=== PATIENT | male | born 1935 | race Caucasian/White ===

== ENCOUNTER → 2017-09-01 | Outpatient (CLI) | payer OTHER ==
[2016-01-06 10:20] VITALS: BP 105/55
[~2017-09-01] MED LIST: AMLO10TA2 PO; ASPI-612 PO; ATOR10TA60 PO; CONTRAST GIVEN MC PRN; DICL100G18 TP; FINA5TAB4 PO; IOHEXOL 300 MG/ML 75 ML VIAL IV ONE; ISOS30TA19 PO; LOSA50TA6 PO; MELO15TA23 PO; OMEG1CAP6 PO; SERT25TA PO; SOTA80TA48 PO
--- NOTE | 2017-09-01 12:51 | RAD ---
Examination: CT angiography chest History: History of aortic insufficiency Comparison: None available Technique: Axial CT and radiographic images were performed with IV contrast. Coronal and sagittal 3-D MIP reformats are performed Volumetric 3-D reformats of the thoracic aorta was performed PQRS Compliance Statement: One or more of the following individualized dose reduction techniques were utilized for this examination: 1. Automated exposure control 2. Adjustment of the mA and/or kV according to patient size 3. Use of iterative reconstruction technique Findings: The visualized thyroid gland grossly appears unremarkable. The central airways are patent. Diffuse coronary artery calcifications identified. Moderate aortic atherosclerosis. No evidence of aortic dissection identified in the thorax. The ascending aorta at the aortic root measures 4.2 cm in transverse dimension. No evidence of filling defect identified in the main pulmonary arterial trunk and the visualized main pulmonary arteries. Minimal bibasal lung atelectasis. The visualized liver, spleen grossly appears unremarkable. Partially visualized duodenal diverticulum. Moderate degenerative disease identified in the thoracic spine. Impression: 1. Mild ascending aortic aneurysmal changes with ascending aorta at the aortic root measuring 4.4 cm in transverse dimension. 2. Coronary artery calcifications.
--- NOTE | 2017-09-01 16:25 | CARD ---
APPROVED REPORT EXAM: Two-dimensional and M-mode echocardiogram with Doppler and color Doppler. INDICATION Cardiomyopathy 2D DIMENSIONS Left Atrium(2D)3.7 (1.6-4.0cm)IVSd1.3 (0.7-1.1cm) Aortic Root(2D)3.6 (2.0-3.7cm)LVDd4.6 (3.9-5.9cm) LVOT Diameter2.0 (1.8-2.4cm)PWd1.2 (0.7-1.1cm) LVDs3.2 (2.5-4.0cm)FS (%) 30.4 % SV57.1 mlLVEF(%)57.9 (>50%) Aortic Valve AoV Peak Pablo.151.7cm/sAoV VTI34.5cm AO Peak GR.9.2mmHgLVOT Peak Pablo.132.3cm/s AO Mean GR.4mmHgAVA (VMAX)2.69cm2 TANNA (VTI)2.49jq2WS P 1/2 Cwtw600pb Mitral Valve MV E Aezwgwop245.8cm/sMV DECEL EALZ799mp MV A Vsfuqiuy964.0cm/sE/A Ratio0.8 Tricuspid Valve TR P. Lsrheudo208es/sTR Peak Gr.16mmHg XSAZ40tvTm LEFT VENTRICLE The left ventricle is normal size. There is mild concentric left ventricular hypertrophy. Left ventri odin systolic function is normal. The Ejection Fraction is 50-55%. There is normal LV segmental wall m otion. Transmitral Doppler flow pattern is Grade I-abnormal relaxation pattern. RIGHT VENTRICLE The right ventricle is normal size. The right ventricular systolic function is normal. ATRIA The left atrium size is normal. The right atrium size is normal. The interatrial septum is intact wit h no evidence for an atrial septal defect or patent foramen ovale as noted on 2-D or Doppler imaging. AORTIC VALVE The aortic valve is calcified but opens well. Grossly appears trileaflet. Doppler and Color Flow reve aled mild aortic regurgitation. There is no significant aortic valvular stenosis. MITRAL VALVE The mitral valve is mildly thickened. There is no evidence of mitral valve prolapse. There is no mitr al valve stenosis. Doppler and Color Flow revealed no mitral valve regurgitation noted. TRICUSPID VALVE The tricuspid valve leaflets are thickened and calcified, but open well. Doppler and Color Flow revea led mild tricuspid regurgitation. There is no pulmonary hypertension. The PA pressure was estimated a t 19 mmHg. There is no tricuspid valve stenosis. PULMONIC VALVE Doppler and Color Flow revealed mild pulmonic valvular regurgitation. There is no pulmonic valvular s tenosis. GREAT VESSELS The aortic root is normal in size. Mild calcification noted in aortic root. The IVC is normal in size and collapses >50% with inspiration. PERICARDIAL EFFUSION There is no pleural effusion. There is no evidence of significant pericardial effusion. Critical Notification Critical Value: No <Conclusion> Left ventricle systolic function is normal. The Ejection Fraction is 50-55%. There is mild concentric left ventricular hypertrophy. There is normal LV segmental wall motion.
== END | disposition home or self-care (01) ==
LOC: CT 10:56
PROVIDERS: ATTEND Internal Medicine Cardiovascular Disease
DX: I25.10 Atherosclerotic heart disease of native coronary artery without angina pectoris (principal); I35.1 Nonrheumatic aortic (valve) insufficiency; K57.10 Diverticulosis of small intestine without perforation or abscess without bleeding; I71.2 Thoracic aortic aneurysm, without rupture; I42.9 Cardiomyopathy, unspecified
CPT/HCPCS: 71275; 93306; Q9967

== ENCOUNTER → 2018-06-20 | Outpatient (CLI) | payer OTHER ==
[2016-01-06 10:20] VITALS: BP 105/55
[~2018-06-20] MED LIST changes: -CONTRAST GIVEN MC PRN; -IOHEXOL 300 MG/ML 75 ML VIAL IV ONE
--- NOTE | 2018-06-21 08:33 | RAD ---
Bilateral lower extremity superficial venous duplex study 06/20/2018 CLINICAL HISTORY: Lower extremity venous insufficiency. TECHNIQUE: Using a combination of real-time ultrasound imaging and color-flow and pulse Doppler imaging techniques, duplex evaluation of the greater and lesser saphenous veins of both lower extremities was performed. Multiple images were obtained. FINDINGS: The right greater saphenous vein at its junction with the right superficial femoral vein measures 5 mm in diameter. No venous reflux is seen. The left greater saphenous vein measures 6.6 mm at its junction. No venous reflux is seen. Both greater saphenous veins are patent. Both lesser saphenous veins are patent. No venous reflux is seen involving either lesser saphenous vein. IMPRESSION: No venous reflux is seen. Electronically signed by: Baldemar Medeiros MD (06/21/2018 8:29 AM) [facility]
== END | disposition home or self-care (01) ==
LOC: US 12:28
PROVIDERS: ATTEND Internal Medicine Cardiovascular Disease
DX: I48.0 Paroxysmal atrial fibrillation (principal); I87.2 Venous insufficiency (chronic) (peripheral); I10 Essential (primary) hypertension; E78.5 Hyperlipidemia, unspecified; M17.9 Osteoarthritis of knee, unspecified; I25.10 Atherosclerotic heart disease of native coronary artery without angina pectoris; K21.9 Gastro-esophageal reflux disease without esophagitis
CPT/HCPCS: 93970

== ENCOUNTER 2018-08-09 16:40 | Emergency (ER) | payer OTHER ==
[~2018-08-09] VITALS: Ht 172.7 cm; Wt 80.7 kg
[~2018-08-09 16:40] MED LIST changes: -AMLO10TA2 PO; +AMLO10TA6 PO; -LOSA50TA6 PO; +LOSA50TA7 PO
[2018-08-09 16:59] VITALS: BP 136/62
[2018-08-09] MEDS ORDERED: NEOMY/BACITR/POLYMYXIN OINT PACKET. TP ONE (17:15)
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
== END 2018-08-09 17:33 | disposition home or self-care (01) ==
LOC: ER 16:40
DX: S50.812A Abrasion of left forearm, initial encounter (principal); S50.811A Abrasion of right forearm, initial encounter; I48.91 Unspecified atrial fibrillation; I10 Essential (primary) hypertension; E78.5 Hyperlipidemia, unspecified; Z86.73 Personal history of transient ischemic attack (TIA), and cerebral infarction without residual deficits; V43.52XA Car driver injured in collision with other type car in traffic accident, initial encounter; Y93.I9 Activity, other involving external motion; Y92.488 Other paved roadways as the place of occurrence of the external cause; Y99.8 Other external cause status
CPT/HCPCS: 99283

== ENCOUNTER → 2020-05-02 | Outpatient (CLI) | payer MEDICARE ==
[~2020-05-02] MED LIST changes: -AMLO10TA6 PO; +AMLO10TA8 PO; -DICL100G18 TP; +DICL100G54 TP; +LIDOCAINE 2% PF 5 ML VIAL. ONE; +LOSA-73 PO; -LOSA50TA7 PO; +PROPOFOL 10 MG/ML (20ML) VIAL. IV ONE; +ePHEDrine PF IN SALINE 50 MG/10 ML SYRINGE. IV ONE
--- NOTE | 2020-05-02 15:54 | RAD ---
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 36/7 cm/sVert. 36/6 cm/s ICA/CCA 1.25ICA/CCA 0.94 Findings Grayscale images of the bilateral common carotid, internal and external carotid vessels demonstrate m ild luminal irregularities. Spectral waveforms and color Doppler are grossly within normal limits. No focal high-grade stenosis is identified bilaterally. Overall 0 to less than 50% stenosis based on velocity criteria. Critical Notification Critical Value: No <Conclusion> 1. No significant carotid occlusive disease bilaterally Signed by : Dillon Bassett, Electronically Approved : 05/02/2020 15:53:50
--- NOTE | 2020-05-02 16:36 | CARD ---
MR#: [id number] Date of Study: 05/02/2020 Ordering Physician: DILLON BASSETT, Referring Physician: DILLON BASSETT, Tech: Cyndi Castellanos [facility] APPROVED REPORT EXAM: Two-dimensional and M-mode echocardiogram with Doppler and color Doppler. Other Information Quality : Fair INDICATION Ascending Aortic Anuerysm 2D DIMENSIONS RVDd2.6 (2.9-3.5cm)Left Atrium(2D)4.3 (1.6-4.0cm) IVSd1.1 (0.7-1.1cm)Aortic Root(2D)4.1 (2.0-3.7cm) LVDd5.3 (3.9-5.9cm)LVOT Diameter2.2 (1.8-2.4cm) PWd1.0 (0.7-1.1cm)LVDs3.1 (2.5-4.0cm) FS (%) 30.0 %SV100.1 ml LVEF(%)60.0 (>50%) Aortic Valve AoV Peak Pablo.137.7cm/sAoV VTI31.6cm AO Peak GR.7.6mmHgLVOT Peak Pablo.126.1cm/s LVOT VTI 27.03cmAO Mean GR.4mmHg TANNA (VMAX)3.13ug9ZIU (VTI)3.17cm2 AI P 1/2 Bllw293cv Mitral Valve MV E Uutitbwp670.5cm/sMV DECEL ANMR147hz MV A Wuxdzkqe957.2cm/sMV LKU44jb E/A Ratio0.8MVA (PHT)3.10cm2 TDI E/Lateral E'16.4E/Medial E'20.7 Tricuspid Valve TR P. Gncabgcb716sh/sRAP NQYBHDZK1okXu TR Peak Gr.70lkAzRHIY44jrDd Pulmonary Vein S1 Ovybbtgh75.7cm/sD2 Uivcmyiz16.8cm/s LEFT VENTRICLE The left ventricle is normal size. There is normal left ventricular wall thickness. The left ventricu lar systolic function is normal and the ejection fraction is within normal range. The Ejection Fracti on is 55-60%. There is normal LV segmental wall motion. Transmitral Doppler flow pattern is Grade I-a bnormal relaxation pattern. RIGHT VENTRICLE The right ventricle is normal size. The right ventricular systolic function is normal. ATRIA The left atrium is mildly dilated. The right atrium size is normal. The interatrial septum is intact with no evidence for an atrial septal defect or patent foramen ovale as noted on 2-D or Doppler imagi ng. AORTIC VALVE The aortic valve is calcified but opens well. Doppler and Color Flow revealed moderate eccentric aort ic regurgitation. There is no significant aortic valvular stenosis. MITRAL VALVE The mitral valve is calcified but opens well. Mitral annular calcification is mild. There is no evide nce of mitral valve prolapse. There is no mitral valve stenosis. Doppler and Color Flow revealed no m itral valve regurgitation noted. TRICUSPID VALVE The tricuspid valve is normal in structure and function. Doppler and Color Flow revealed trace tricus pid regurgitation. The PA pressure was estimated at 33 mmHg. There is no tricuspid valve stenosis. PULMONIC VALVE The pulmonic valve is not well visualized. Doppler and Color Flow revealed no pulmonic valvular regur gitation. There is no pulmonic valvular stenosis. GREAT VESSELS The aortic root is normal in size. The ascending aorta is mildly dilated at 3.5 cm. The IVC was not v isualized. PERICARDIAL EFFUSION There is no evidence of significant pericardial effusion. Critical Notification Critical Value: No <Conclusion> The left ventricular systolic function is normal and the ejection fraction is within normal range. Th e Ejection Fraction is 55-60%. There is normal LV segmental wall motion. Doppler and Color Flow revealed moderate eccentric aortic regurgitation. The ascending aorta is mildly dilated at 3.5 cm. Signed by : Dillon Bassett, Electronically Approved : 05/02/2020 16:35:23
== END ==
LOC: ECHO 12:51
PROVIDERS: ATTEND Internal Medicine Cardiovascular Disease
DX: I08.0 Rheumatic disorders of both mitral and aortic valves (principal); I71.2 Thoracic aortic aneurysm, without rupture; G45.9 Transient cerebral ischemic attack, unspecified; I10 Essential (primary) hypertension; E78.5 Hyperlipidemia, unspecified
CPT/HCPCS: 93306; 93880; J2704; J3490

== ENCOUNTER 2020-06-23 00:44 | Emergency (ER) | payer MEDICARE ==
[~2020-06-23] VITALS: Ht 177.8 cm; Wt 83.0 kg
[~2020-06-23 00:44] MED LIST changes: -ASPI-612 PO; +ASPI-886 PO; -LIDOCAINE 2% PF 5 ML VIAL. ONE; -PROPOFOL 10 MG/ML (20ML) VIAL. IV ONE; -ePHEDrine PF IN SALINE 50 MG/10 ML SYRINGE. IV ONE
--- NOTE | 2020-06-23 02:27 | PHYS DOC ---
Past Medical History Past Medical History: A-Fib, Cancer, CVA, Hypertension, Other Additional Past Medical Histor: CHRONIC HEMATURIA,HYPERLIPIDEMIA,POLIOMYELITIS,PROSTATE CA Past Surgical History: Cholecystectomy, Other Additional Past Surgical Histo: SEEDS PLACED IN PROSTATE,HERNIA,SHOULDER SURG Smoking Status: Never Smoker Alcohol Use: None Drug Use: None General Adult EDM: Chief Complaint: HYPERTENSION HPI: HPI: Patient is a 84 year old male who presents with complaints of elevated blood pressure. Patient is a very pleasant gentleman who is generally independent. Today he came in with concerns for an elevated blood pressure all day. Patient reports he is been taking all of his blood pressure medications. He denies any change in exercise tolerance, chest pain, shortness of breath or any focal neurological changes. He does complain of some dizziness but the dizziness is for his nonvertiginous and is chronic. He reports it is unchanged from previous. In addition he denies any cough, shortness of breath, nausea or vomiting, melena hematochezia, abdominal pain, headache. Review of Systems: Review of Systems: Constitutional: Denies fever or chills. [] Eyes: Denies change in visual acuity. [] HENT: Denies nasal congestion or sore throat. [] Respiratory: Denies cough or shortness of breath. [] Cardiovascular: Denies chest pain or edema. [] GI: Denies abdominal pain, nausea, vomiting, bloody stools or diarrhea. [] : Denies dysuria. [] Musculoskeletal: Denies back pain or joint pain. [] Integument: Denies rash. [] Neurologic: Denies headache, focal weakness or sensory changes. [] Endocrine: Denies polyuria or polydipsia. [] Lymphatic: Denies swollen glands. [] Psychiatric: Denies depression or anxiety. [] Heart Score: Risk Factors: Risk Factors: DM, Current or recent (<one month) smoker, HTN, HLP, family history of CAD, obesity. Risk Scores: Score 0 - 3: 2.5% MACE over next 6 weeks - Discharge Home Score 4 - 6: 20.3% MACE over next 6 weeks - Admit for Clinical Observation Score 7 - 10: 72.7% MACE over next 6 weeks - Early Invasive Strategies Allergies: Allergies: Allergies Coded Allergies Type Severity Reaction Last Updated Verified No Known Drug Allergies 12/30/14 No Physical Exam: PE: Constitutional: Well developed, well nourished, no acute distress, non-toxic appearance. [] HENT: Normocephalic, atraumatic, bilateral external ears normal, oropharynx moist, no oral exudates, nose normal. [] Eyes: PERRLA, EOMI, conjunctiva normal, no discharge. [] Neck: Normal range of motion, no tenderness, supple, no stridor. [] Cardiovascular:Heart rate regular rhythm, grade 1/6 systolic murmur, no S3 or S4, 1 out of 2 dorsalis pedis bilaterally [] Lungs & Thorax: Bilateral breath sounds clear to auscultation [] Abdomen: Bowel sounds normal, soft, no tenderness, no masses, no pulsatile masses. [] Skin: Warm, dry, no erythema, no rash. [] Back: No tenderness, no CVA tenderness. [] Extremities: No tenderness, no cyanosis, no clubbing, ROM intact, no edema. [] Neurologic: Alert and oriented X 3, normal motor function, normal sensory function, no focal deficits noted. [] Psychologic: Affect normal, judgement normal, mood normal. [] Current Patient Data: Vital Signs: Vital Signs Date Time Temp Pulse Resp B/P (MAP) Pulse Ox O2 Delivery O2 Flow Rate FiO2 06/23/20 00:50 98.4 67 18 184/65 (104) 96 Room Air 98.4 EKG: EKG: Heart rate 59 bpm, normal sinus rhythm, first-degree AV block, left axis deviation, left anterior fascicular block, LVH with repolarization abnormality, abnormal ECG [] Radiology/Procedures: Radiology/Procedures: [] Course & Med Decision Making: Course & Med Decision Making Pertinent Labs and Imaging studies reviewed. (See chart for details) 0225-patient was seen and examined. At this time there is no evidence for an exigent medical or surgical problem requiring admission. I reviewed his EKG and we did the neuro exam. I offered additional blood testing but he refused. He is satisfied that he is okay and is wanting to go home. I discussed with him and his caregiver reasons to return, treatment plan and need for follow-up. He is to call his PCP in the morning and ask for an adjustment in his blood pressure medications. [] Allyson Disclaimer: Allyson Disclaimer: This electronic medical record was generated, in whole or in part, using a voice recognition dictation system. Departure Departure Impression: Primary Impression: Benign essential hypertension Disposition: HOME, SELF-CARE Condition: STABLE Referrals: HENRY LOERA MD (PCP) Additional Instructions: Please return for chest pain, shortness of breath or changes in special senses, sensation, strength or mentation. Do not hesitate to call 911 should any of these occur. Justicifation of Admission Dx: Justifications for Admission: Justification of Admission Dx: N/A NIHSS Stroke Scale NIH Stroke Scale: NIH Stroke Scale Response (Comments) Value Level of Consciousness: 0 Alert/Responsive 0 LOC Questions: 0 Answers both correctly 0 LOC Commands: 0 Performs both tasks 0 Best Gaze: 0 Normal 0 Visual: 0 No visual loss 0 Facial Palsy: 0 Normal, symmetrical 0 Motor - Left Arm 0 No drift 0 Motor - Right Arm 0 No drift 0 Motor - Left Leg 0 No drift 0 Motor: Right Leg 0 No drift 0 Limb Ataxia: 0 Absent 0 Sensory: 0 No loss 0 Best Language: 0 Normal 0 Dysathria: 0 Normal 0 Extinction and Inattention: 0 Normal 0 Total 0 JANAK GALVEZ MD Jun 23, 2020 02:27
[2020-06-23 02:39] VITALS: BP 170/85
--- NOTE | 2020-06-24 12:12 | EKG ---
[facility] [address] [place] [address] Test Date: 2020-06-23 Test Time: 01:49:38 Pat Name: NIXON SHANE Department: Room: Gender: M [employer]: : [id number] Requested By: JANAK GALVEZ Order Number: [id number] Reading MD: Measurements Intervals [place] Rate: 59 P: 29 TX: 244 QRS: -48 QRSD: 124 T: 43 QT: 484 QTc: 479 Interpretive Statements SINUS RHYTHM PROLONGED TX INTERVAL ABNORMAL LEFT AXIS DEVIATION LEFT ANTERIOR FASCICULAR BLOCK LEFT VENTRICULAR HYPERTROPHY QRS(T) CONTOUR ABNORMALITY CONSIDER ANTEROSEPTAL MYOCARDIAL DAMAGE ABNORMAL ECG RI6.02 Compared to ECG 06/23/2020 01:46:25 Early repolarization no longer present
== END 2020-06-23 02:57 | disposition home or self-care (01) ==
LOC: ER 00:44
DX: I10 Essential (primary) hypertension (principal); R42 Dizziness and giddiness; Z85.9 Personal history of malignant neoplasm, unspecified; Z86.73 Personal history of transient ischemic attack (TIA), and cerebral infarction without residual deficits; Z98.890 Other specified postprocedural states; Z90.49 Acquired absence of other specified parts of digestive tract
CPT/HCPCS: 93005; 99285